=== PATIENT | male | born 1980 | race African-American/Black ===

== ENCOUNTER 2020-11-19 13:17 | Emergency (ER) | payer OTHER ==
[~2020-11-19] VITALS: Ht 182.9 cm; Wt 113.4 kg
[2020-11-19] MEDS ORDERED: CEPHALEXIN500 MG PO (16:20)
[2020-11-19] MEDS ORDERED: MOBIC7.5 MG PO (16:20)
== END 2020-11-19 16:20 | disposition home or self-care (01) ==
LOC: ER 13:17
DX: M79.661 Pain in right lower leg (principal)